=== PATIENT | female | born 1980 | race Caucasian/White ===

== ENCOUNTER 2018-10-05 11:05 | Outpatient (CLI) | payer OTHER | END 2018-10-05 21:04 | disposition home or self-care (01) | LOC: SMI 11:05 | PROVIDERS: ATTEND Orthopaedic Surgery | DX: S83.411A Sprain of medial collateral ligament of right knee, initial encounter (principal); S83.511A Sprain of anterior cruciate ligament of right knee, initial encounter; M22.41 Chondromalacia patellae, right knee; X58.XXXA Exposure to other specified factors, initial encounter; Y93.89 Activity, other specified; Y92.89 Other specified places as the place of occurrence of the external cause; Y99.8 Other external cause status | CPT/HCPCS: 73721 ==